=== PATIENT | female | born 1995 | race African-American/Black ===

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

== ENCOUNTER 2018-03-10 06:02 | Emergency (ER) | payer SELFPAY ==
[~2018-03-10 06:02] MED LIST: Potassium Chloride 20 MEQ TAB ONE; Sulfameth/Trimethoprim DS 800-160mg TAB ONE
[2018-03-11] MEDS ORDERED: Sulfameth/Trimethoprim DS 800-160mg TAB ONE (12:58)
== END 2018-03-10 13:05 | disposition home or self-care (01) ==
LOC: ERS 06:02
DX: T43.592A Poisoning by other antipsychotics and neuroleptics, intentional self-harm, initial encounter (principal); N39.0 Urinary tract infection, site not specified; F32.9 Major depressive disorder, single episode, unspecified
CPT/HCPCS: 99284

== ENCOUNTER 2019-05-08 15:35 | Emergency (ER) | payer SELFPAY ==
[2019-05-08 17:39] LABS: Bacteria/HPF 4+ HPF (None Seen); Bilirubin Negative (Negative); Blood, Urine 2+ (Negative); Clarity Extra Turbid (Clear); Glucose, Urine (Dipstick) Normal (Negative); Leukocyte 500 Leu/uL (Negative); Nitrite 2+ (Negative); Protein, Urine (Dipstick) 100 mg/dL (Neg-Trace); RBC/HPF Greater than 50 HPF (0-3); Squamous Epithelial 0-3 HPF (0-3); Urobilinogen Normal mg/dL (Less than 2); WBC/HPF 0-3 HPF (0-3)
[2019-05-08 17:47] LABS: Triple Phosphate Crystal 1+ HPF (None Seen)
== END 2019-05-08 19:04 | disposition home or self-care (01) ==
LOC: ERS 15:35
DX: N64.4 Mastodynia (principal); N39.0 Urinary tract infection, site not specified; F32.9 Major depressive disorder, single episode, unspecified
CPT/HCPCS: 81003; 81015; 87086; 99283